=== PATIENT | male | born 1985 | race Hispanic/Latino ===

== ENCOUNTER 2019-01-14 22:21 | Observation (INO) | payer SELFPAY ==
[2019-01-14 23:02] LABS: Absolute Lymphocytes (CBC) 3.6 K/uL (0.7-4.9); Absolute Monocytes 1.2 K/uL (0.1-1.3); Basophils % 0.5 % (0-1.3); Eosinophils % 1.8 % (0-4.4); Lymphocytes % 27.7 % (15.3-44.8); MPV 8.3 fL (7.6-11.3); RBC Red Blood Cell Count 4.83 M/uL (4.33-5.43)
[2019-01-14 23:13] LABS: ALT/SGPT 61 U/L (12-78); AST/SGOT 80 U/L (15-37); Albumin 3.7 g/dL (3.4-5.0); Alkaline Phosphatase 98 U/L (45-117); BUN Blood Urea Nitrogen 14 mg/dL (7-18); Bicarbonate 29 mmol/L (21-32); Bilirubin Direct < 0.1 mg/dL (0-0.2); Bilirubin Total 0.3 mg/dL (0.2-1.0); Glucose Level 109 mg/dL (74-106); Lipase 605 U/L (73-393); Potassium 3.7 mmol/L (3.5-5.1); Protein, Total 7.4 g/dL (6.4-8.2); Sodium Level 142 mmol/L (136-145)
[2019-01-14] MEDS ORDERED: NA CHLORIDE 0.9% 1,000 ML ONE (23:35)
[2019-01-14 23:58] LABS: Urine Blood NEGATIVE (NEG); Urine Glucose NEGATIVE (NEG); Urine Protein NEGATIVE (NEG); Urine pH 5.5 (5.0-7.0)
--- NOTE | 2019-01-15 01:36 | ER ---
Nurse's Notes [facility] Name: Easton Rodrigues Age: 33 yrs Sex: Male : 1985 Arrival Date: 01/14/2019 Time: 22:24 Bed 25 Private MD: Diagnosis: Cholelithiasis;Acute pancreatitis Presentation: 01/14 22:25 Presenting complaint: EMS states: sudden onset RUQ pain. Hx of gallstone. Transition of ca1 care: patient was not received from another setting of care. Onset of symptoms was January 14, 2019. Risk Assessment: Do you want to hurt yourself or someone else? Patient reports no desire to harm self or others. Initial Sepsis Screen: Does the patient meet any 2 criteria? No. Patient's initial sepsis screen is negative. Does the patient have a suspected source of infection? Yes: Acute abdominal pain. Care prior to arrival: Medication(s) given: zofran 4 mg, Toradol 30mg IV initiated. 20 GA, in the left antecubital area. 22:25 Method Of Arrival: EMS: [facility] ca1 22:25 Acuity: ELMO 3 ca1 Triage Assessment: 22:29 General: Appears in no apparent distress. comfortable. General: Behavior is calm, ca1 cooperative, appropriate for age. Pain: Complains of pain in right upper quadrant Pain does not radiate. Pain currently is 6 out of 10 on a pain scale. Pain began 30 min ago. Historical: - Allergies: 22:29 No Known Allergies; ca1 - Home Meds: 22:29 None [Active]; ca1 - PMHx: 22:29 None; ca1 - PSHx: 22:29 None; ca1 - Immunization history:: Flu vaccine is not up to date. - Social history:: Smoking status: Patient uses tobacco products, denies chronic smoking, but will smoke occasionally, Patient uses alcohol, occasionally. Patient/guardian denies using street drugs. - Ebola Screening: : No symptoms or risks identified at this time. Screenin:32 Abuse screen: Denies threats or abuse. Denies injuries from another. Nutritional ca1 screening: No deficits noted. Tuberculosis screening: No symptoms or risk factors identified. Fall Risk None identified. Assessment: 22:32 General: Appears in no apparent distress. comfortable, Behavior is calm, cooperative, ca1 appropriate for age. Pain: Complains of pain in right upper quadrant Pain does not radiate. Pain currently is 6 out of 10 on a pain scale. Pain began 30 min ago. Is continuous. Neuro: Level of Consciousness is awake, alert, obeys commands, Oriented to person, place, time, situation. Cardiovascular: Heart tones S1 S2 present Capillary refill < 3 seconds Patient's skin is warm and dry. Respiratory: Airway is patent Respiratory effort is even, unlabored, Respiratory pattern is regular, symmetrical, Breath sounds are clear bilaterally. GI: Abdomen is round non-distended, Bowel sounds present X 4 quads. Abd is soft X 4 quads Abdomen is tender to palpation in right upper quadrant Patient currently denies nausea, vomiting. : No deficits noted. No signs and/or symptoms were reported regarding the genitourinary system. EENT: No deficits noted. No signs and/or symptoms were reported regarding the EENT system. Derm: Skin is intact, is healthy with good turgor, Skin is pink, warm \T\ dry. Musculoskeletal: Circulation, motion, and sensation intact. Capillary refill < 3 seconds. 23:35 Reassessment: Patient appears in no apparent distress at this time. Patient and/or ca1 family updated on plan of care and expected duration. Pain level reassessed. Patient is alert, oriented x 3, equal unlabored respirations, skin warm/dry/pink. 01/15 00:40 Reassessment: Patient appears in no apparent distress at this time. Patient and/or ca1 family updated on plan of care and expected duration. Pain level reassessed. Patient is alert, oriented x 3, equal unlabored respirations, skin warm/dry/pink. Vital Signs: 01/14 22:29 BP 123 / 72; Pulse 95; Resp 18; Temp 97.8; Pulse Ox 99% on R/A; Weight 117.93 kg; ca1 Height 5 ft. 10 in. (177.80 cm); Pain 6/10; 23:35 BP 122 / 74; Pulse 88; Resp 19; Pulse Ox 100% on R/A; ca1 01/15 00:40 BP 120 / 71; Pulse 91; Resp 19; Pulse Ox 99% on R/A; ca1 02:15 BP 124 / 72 LA; Pulse 81; Resp 18 S; Pulse Ox 97% on R/A; rv 01/14 22:29 Body Mass Index 37.31 (117.93 kg, 177.80 cm) ca1 ED Course: 01/14 22:24 Patient arrived in ED. ca1 22:24 Naomi Ramires FNP-C is [facility]. kb 22:24 Sebas Carr MD is Attending Physician. kb 22:27 Triage completed. ca1 22:29 Arm band placed on right wrist. ca1 22:32 Nicolle Trujillo, RN is Primary Nurse. ca1 22:32 Patient has correct armband on for positive identification. Placed in gown. Bed in low ca1 position. Call light in reach. Side rails up X 1. Pulse ox on. NIBP on. Warm blanket given. 22:40 No provider procedures requiring assistance completed. Inserted saline lock: 20 gauge ca1 in right antecubital area, using aseptic technique. Blood collected. 22:41 US Abdomen Limited In Process Unspecified. EDMS 22:59 Ultrasound completed. hr 01/15 00:00 CT Abd/Pelvis - W/Contrast In Process Unspecified. EDMS 01:35 Santiago Fierro MD is Hospitalizing Provider. kb 02:15 Patient admitted, IV remains in place. intact. rv Administered Medications: 01/14 23:25 Drug: NS 0.9% 1000 ml Route: IV; Rate: 1000 ml; Site: right antecubital; ca1 03 02:13 Follow up: IV Status: Completed infusion rv 01:54 Drug: NS 0.9% 1000 ml Route: IV; Rate: 125 ml/hr; Site: right antecubital; rv 02:13 Follow up: IV Status: Infusion continued upon admission rv 02:13 Drug: cefOXitin 2 grams Route: IVPB; Infused Over: 30 mins; Site: right antecubital; rv Outcome: 01:35 Decision to Hospitalize by Provider. kb 02:15 Admitted to Med/surg accompanied by nurse, via wheelchair, room 224, with chart, Report rv called to NAE POLK 02:15 Condition: good 02:15 Instructed on the need for admit, Demonstrated understanding of instructions. 02:16 Patient left the ED. rv Signatures: Dispatcher [employer] EDMS Naomi Ramires FNP-C FNP-Jimena Tran Oswaldo Blas RN RN rv Nicolle Trujillo RN RN ca1
--- NOTE | 2019-01-15 01:37 | EDPHYS ---
Physician Documentation [facility] Name: Easton Rodrigues Age: 33 yrs Sex: Male : 1985 Arrival Date: 01/14/2019 Time: 22:24 Bed 25 Private MD: ED Physician Sebas Carr HPI: 01/14 23:54 This 33 yrs old Male presents to ER via EMS with complaints of Abdominal Pain. kb 23:54 The patient presents with abdominal pain in the right upper quadrant. Onset: The kb symptoms/episode began/occurred 1 hour(s) ago. The symptoms do not radiate. Associated signs and symptoms: none. The symptoms are described as constant. Modifying factors: The symptoms are alleviated by nothing, the symptoms are aggravated by pressure. Severity of pain: At its worst the pain was moderate in the emergency department the pain is unchanged. The patient has experienced a previous episode. The patient has not recently seen a physician. Historical: - Allergies: 22:29 No Known Allergies; ca1 - Home Meds: 22:29 None [Active]; ca1 - PMHx: 22:29 None; ca1 - PSHx: 22:29 None; ca1 - Immunization history:: Flu vaccine is not up to date. - Social history:: Smoking status: Patient uses tobacco products, denies chronic smoking, but will smoke occasionally, Patient uses alcohol, occasionally. Patient/guardian denies using street drugs. - Ebola Screening: : No symptoms or risks identified at this time. ROS: 23:54 Constitutional: Negative for fever, chills, and weight loss, Cardiovascular: Negative kb for chest pain, palpitations, and edema, Respiratory: Negative for shortness of breath, cough, wheezing, and pleuritic chest pain, Back: Negative for injury and pain, : Negative for injury, bleeding, discharge, and swelling, MS/Extremity: Negative for injury and deformity, Skin: Negative for injury, rash, and discoloration, Neuro: Negative for headache, weakness, numbness, tingling, and seizure. 23:54 Abdomen/GI: Positive for abdominal pain, Negative for nausea, vomiting, and diarrhea, constipation, abdominal cramps, abdominal distension, anorexia. Exam: 23:53 Constitutional: This is a well developed, well nourished patient who is awake, alert, kb and in no acute distress. Head/Face: Normocephalic, atraumatic. Chest/axilla: Normal chest wall appearance and motion. Nontender with no deformity. No lesions are appreciated. Cardiovascular: Regular rate and rhythm with a normal S1 and S2. No gallops, murmurs, or rubs. Normal PMI, no JVD. No pulse deficits. Respiratory: Lungs have equal breath sounds bilaterally, clear to auscultation and percussion. No rales, rhonchi or wheezes noted. No increased work of breathing, no retractions or nasal flaring. Back: No spinal tenderness. No costovertebral tenderness. Full range of motion. Skin: Warm, dry with normal turgor. Normal color with no rashes, no lesions, and no evidence of cellulitis. MS/ Extremity: Pulses equal, no cyanosis. Neurovascular intact. Full, normal range of motion. Neuro: Awake and alert, GCS 15, oriented to person, place, time, and situation. Cranial nerves II-XII grossly intact. Motor strength 5/5 in all extremities. Sensory grossly intact. Cerebellar exam normal. Normal gait. 23:53 Abdomen/GI: Inspection: obese Bowel sounds: normal, in all quadrants, Palpation: soft, in all quadrants, moderate abdominal tenderness, in the right upper quadrant. Vital Signs: 22:29 BP 123 / 72; Pulse 95; Resp 18; Temp 97.8; Pulse Ox 99% on R/A; Weight 117.93 kg; ca1 Height 5 ft. 10 in. (177.80 cm); Pain 6/10; 23:35 BP 122 / 74; Pulse 88; Resp 19; Pulse Ox 100% on R/A; ca1 01/15 00:40 BP 120 / 71; Pulse 91; Resp 19; Pulse Ox 99% on R/A; ca1 02:15 BP 124 / 72 LA; Pulse 81; Resp 18 S; Pulse Ox 97% on R/A; rv 01/14 22:29 Body Mass Index 37.31 (117.93 kg, 177.80 cm) ca1 MDM: 01/14 22:24 Patient medically screened. kb 23:53 Data reviewed: vital signs, nurses notes. Data interpreted: Pulse oximetry: on room air kb is 99 %. Interpretation: normal. 01/15 01:34 Counseling: I had a detailed discussion with the patient and/or guardian regarding: the kb historical points, exam findings, and any diagnostic results supporting the discharge/admit diagnosis, lab results, radiology results, the need for further work-up and treatment in the hospital. Physician consultation: Santiago Fierro MD was contacted at 01:34, regarding admission, to the medical/surgical unit. patient's condition, and will see patient in inpatient room, later today, called by Dr Carr. 01/14 22:25 Order name: Basic Metabolic Panel; Complete Time: 23:17 kb 01/14 22:25 Order name: CBC with Diff; Complete Time: 23:12 kb 01/14 22:25 Order name: Hepatic Function; Complete Time: 23:17 kb 01/14 22:25 Order name: Lipase; Complete Time: 23:17 kb 01/14 22:25 Order name: US Abdomen Limited kb 01/14 23:46 Order name: Urine Dipstick--Ancillary (enter results); Complete Time: 00:00 mw2 01/14 22:25 Order name: IV Saline Lock; Complete Time: 22:52 kb 01/14 22:25 Order name: Labs collected and sent; Complete Time: 22:52 kb 01/14 23:18 Order name: CT Abd/Pelvis - W/Contrast kb Administered Medications: 01/14 23:25 Drug: NS 0.9% 1000 ml Route: IV; Rate: 1000 ml; Site: right antecubital; ca1 01/15 02:13 Follow up: IV Status: Completed infusion rv 01:54 Drug: NS 0.9% 1000 ml Route: IV; Rate: 125 ml/hr; Site: right antecubital; rv 02:13 Follow up: IV Status: Infusion continued upon admission rv 02:13 Drug: cefOXitin 2 grams Route: IVPB; Infused Over: 30 mins; Site: right antecubital; rv Disposition: 01/15/19 01:35 Hospitalization ordered by Santiago Fierro for Observation. Preliminary diagnosis are Cholelithiasis, Acute pancreatitis. - Bed requested for Telemetry/MedSurg (observation). - Status is Observation. rv - Condition is Stable. - Problem is new. - Symptoms are unchanged. UTI on Admission? No Addendum: 01/17/2019 19:38 Co-signature as Attending Physician, Sebas Carr MD. g s Signatures: Dispatcher [employer] EDNaomi Hair FNP-C RESIDUE FURNACE OPERATOR-Ckb Taya Cruz RN RN fc Sebas Carr MD MD gs Vicente, Ronaldo, RN RN rv Nicolle Trujillo RN RN ca1 Corrections: (The following items were deleted from the chart) 01/15 01:59 01:35 Hospitalization Ordered by Santiago Fierro MD for Observation. Preliminary fc diagnosis is Cholelithiasis; Acute pancreatitis. Bed requested for Telemetry/MedSurg (observation). Status is Observation. Condition is Stable. Problem is new. Symptoms are unchanged. UTI on Admission? No. kb 02:16 01:59 01/15/2019 01:35 Hospitalization Ordered by Santiago Fierro MD for Observation. rv Preliminary diagnosis is Cholelithiasis; Acute pancreatitis. Bed requested for Telemetry/MedSurg (observation). Status is Observation. Condition is Stable. Problem is new. Symptoms are unchanged. UTI on Admission? No. fc
[2019-01-15] MEDS ORDERED: CEFOXITIN/SWI 1gm 1 GM/10 ML SYR ONE ×2 (01:53→02:01)
[2019-01-15] MEDS ORDERED: NA CHLORIDE 0.9% 1,000 ML ONE (02:02)
[2019-01-15] MEDS ORDERED: NA CHLORIDE 0.9% 100 ML IV ONE (02:08)
[2019-01-15] MEDS ORDERED: MORPHINE 4 MG/ML SYR IV PRN ×2 (02:27→14:37)
[2019-01-15] MEDS ORDERED: ACETAMINOPHEN 500 MG TAB PO PRN (02:27)
[2019-01-15] MEDS: NA CHLORIDE 0.9% 1,000 ML IV SCH ×3 (02:27→14:39)
[2019-01-15] MEDS ORDERED: ONDANSETRON 4 MG/2 ML VIAL IV PRN (02:27)
[2019-01-15] MEDS ORDERED: INFLUENZA VACCINE (for 3y+) 0.5 ML DOSE IMVAC ONE (06:00)
[2019-01-15] MEDS ORDERED: CEFOXITIN SODIUM 1 GM/VIAL IVPB SCH (06:00)
--- NOTE | 2019-01-15 07:04 | RAD REPORT ---
EXAM DESCRIPTION: US - Abdomen Exam Limited - 01/14/2019 10:42 pm CLINICAL HISTORY: Abdominal pain, right upper quadrant pain Preliminary findings were provided at the time of the study. COMPARISON: None. FINDINGS: Gallbladder is normal size. Gallbladder is packed with multiple gallstones. Number gallsto lora limits ability to accurately assess size. Gallbladder wall is upper normal. No pericholecystic fl uid. No intrahepatic biliary dilatation seen. Common bile duct is 3 mm, normal range. Biliary tree assessm ent was limited. IMPRESSION: Normal size gallbladder packed with multiple gallstones. Gallbladder wall is upper jabier l in echogenic. No pericholecystic fluid. Correlation is needed with any acute cholecystitis lab or e xam findings. Biliary tree is grossly normal but considered limited in assessment. MRCP imaging could be performed if the patient has symptoms or lab findings suggesting duct stones.
[2019-01-15] MEDS ORDERED: Ringers Lactate 1,000 ML IV ONE ×2 (11:19→12:59)
[2019-01-15] MEDS ORDERED: BUPIVACAINE 0.5% PF 10 ML VIAL ONE (11:35)
[2019-01-15] MEDS ORDERED: PROPOFOL 200 MG/20 ML VIAL IV ONE (11:39)
[2019-01-15] MEDS ORDERED: MIDAZOLAM HCL 2 MG/2 ML INJ ONE (11:40)
[2019-01-15] MEDS ORDERED: FENTANYL CITR 250 MCG/5 ML ONE (11:40)
[2019-01-15] MEDS ORDERED: GLYCOPYRROLATE 0.2 MG/ML SYR ONE (11:40)
[2019-01-15] MEDS ORDERED: LIDOCAINE 2% MPF 5 ML VIAL ONE ×2 (11:40→13:33)
--- NOTE | 2019-01-15 12:03 | P.HP ---
Date of Service: 01/15/19 PC: This 33-year-old male presents emergency room with severe right upper quadrant abdominal pain for diagnosis and treatment. HPC: Patient apparently had been at home. Began to experience a right upper quadrant abdominal pain. Went to the bathroom to see if the bowel local relieve his discomfort. Afterwards he passed out and was brought to the hospital. PMH: Negative PSHx: Negative SOC: No known allergies SYS REVIEW: No cough, wheeze, shortness of breath. No chest pain or palpitations. Denies any urinary complaints O/E awake alert vital signs are stable HEENT: Not jaundiced Chest: Chest movement equal bilaterally ABD: Tender in the right upper quadrant LOCO: Intact DATA: Has documented gallstones, lipase mildly elevated IMPRESSION: Cholecystitis with cholelithiasis possible choledocholithiasis PLAN: I will take him to the operating room for laparoscopic cholecystectomy with intraoperative cholangiogram. The risks of this procedure have been discussed. The possibility of bleeding, infection, injury to bile ducts blood vessels intestines was described. The possible need for an open and/or further surgeries and procedures including ERCP were described. He and his understands, and want to proceed.
[2019-01-15] MEDS: CEFOXITIN/SWI 1gm 1 GM/10 ML SYR IV SCH ×2 (12:05→17:56)
[2019-01-15] MEDS ORDERED: ONDANSETRON 4 MG/2 ML VIAL ONE (13:19)
[2019-01-15] MEDS ORDERED: ROCURONIUM 50 MG/5 ML VIAL IV ONE ×2 (13:19→13:24)
[2019-01-15] MEDS ORDERED: NEOSTIGMINE 1 MG/ML -10 ML VIAL ONE (13:19)
[2019-01-15] MEDS ORDERED: FENTANYL CITR 100 MCG/2 ML ONE (13:20)
[2019-01-15] MEDS: HYDROMORPHONE HCL 2 MG/ML inj ONE ×4 (13:45→14:16)
--- NOTE | 2019-01-15 14:22 | P.OP ---
Preoperative diagnosis: Cholecystitis with cholelithiasis, possible choledocholithiasis Postoperative diagnosis: The same Primary procedure: Laparoscopic cholecystectomy Secondary procedure: Cholangiogram Anesthesia: General Estimated blood loss: And 10 cc Specimen: 1 gallbladder and contents Operative Technique: The patient was brought to the operating room placed supine on the table. After the induction of adequate general endotracheal anesthesia, the area of the abdomen is prepped with a DuraPrep solution, and draped in the usual aseptic manner. A subumbilical incision was made. This brought down through the skin and subcutaneous tissue. The Visiport was used to enter the peritoneal cavity and created pneumoperitoneum to approximately 12 mm of mercury. Under direct vision a 5 mm trocar was placed in the upper midline, and 2 other 5 mm trocars on the right lateral side. The patient's head was then elevated and rolled towards the pebble mill operator's side. We could see a distended and acutely inflamed gallbladder.. A grasper was placed on the fundus of the gallbladder. Another 1 was placed down by Stephon's pouch. Applying lateral traction we were able to dissect and expose the cystic duct and artery. The artery was dealt with 1st. It was clipped and divided in the usual manner. A clip was then placed between the gallbladder and the cystic duct. An opening was made into the cystic duct. We attempted then to pass the cholangiocath into the cystic duct. The cholangiogram demonstrated good flow contrast into the duodenum, there were no filling defects noted. Clips were now placed on the distal portion of the cystic duct. The cystic duct was then divided. The gallbladder was now dissected free from the liver bed, placed into an Endo-Catch, and brought out through the umbilical trocar site. Because of the size of the gallbladder was necessary to open the facile incision to allow this specimen to be removed from the peritoneal cavity. The gallbladder fossa was inspected to ensure adequate hemostasis. It was irrigated with a saline solution and the irrigant aspirated from the peritoneal cavity. 0.25% Marcaine was aerosolized into the right upper quadrant and the gallbladder fossa. The umbilical trocar site was now approximated with an Endo Close and an absorbable sutures. The pneumoperitoneum was then collapsed, the suture tied, and mditriy applied to the skin. A further 0.25% Marcaine was injected around are incision sites. At the end of the procedure the patient was in a stable condition when sent to the recovery room. Needle sponge instrument count were correct. 1 specimen was sent for histopathology. Complications: None Transferred to: Recovery Room Condition: Good
[2019-01-15] MEDS ORDERED: HYDROCODONE/APAP 7.5/325 MG TAB PO PRN (14:37)
--- NOTE | 2019-01-15 15:30 | RAD REPORT ---
EXAM DESCRIPTION: RADCholangiogram Oper-Xray Or01/15/2019 3:21 pm CLINICAL HISTORY: Abdominal pain FINDINGS: The examination was performed by Dr. Fierro. The cystic duct was cannulated and contrast administered. Contrast flowed into the duodenum. A filling defect within the bile duct is not seen. Two fluoroscopic spot images. Fluoroscopy time 0.2 minutes
--- NOTE | 2019-01-16 12:00 | RAD REPORT ---
EXAM DESCRIPTION: CT - Abdomen Pelvis W Contrast - 01/15/2019 12:20 am CLINICAL HISTORY: The patient is 50 years old and is Male; ABD PAIN TECHNIQUE: Axial computed tomography images of the abdomen and pelvis with intravenous contrast. S agittal and coronal reformatted images were created and reviewed. This CT exam was performed using one or more of the following dose reduction techniques: automated exposure control, adjustment of t he mA and/or kV according to patient size, and/or use of iterative reconstruction technique. COMPARISON: No relevant prior studies available. FINDINGS: Lung bases: Unremarkable. No mass. No consolidation. ABDOMEN: Liver: There is a diffuse decrease in hepatic parenchymal density, consistent with fatty infiltr ation. Gallbladder and bile ducts: No calcified stones. No ductal dilation. Pancreas: No ductal dilation. No mass. Spleen: Unremarkable. Adrenals: Unremarkable. No mass. Kidneys and ureters: Unremarkable. No solid mass. No hydronephrosis. Stomach and bowel: The stomach is decompressed. The proximal small bowel is normal in caliber. S everal small bowel loops within the right abdomen are dilated and fluid-filled with a transition poin t at the level of anastomosis. The remainder of the small bowel is normal in caliber. The colon is fi lled with liquid stool. PELVIS: Appendix: No findings to suggest acute appendicitis. Bladder: Unremarkable. No mass. Reproductive: Unremarkable as visualized. ABDOMEN and PELVIS: Intraperitoneal space: Unremarkable. No free air. No significant fluid collection. Bones/joints: No acute fracture. Soft tissues: Midline abdominal incision is present. Vasculature: Unremarkable. No abdominal aortic aneurysm. Lymph nodes: Unremarkable. No enlarged lymph nodes. IMPRESSION: Findings suggestive of a small bowel ileus/developing obstruction with transition near t he anastomosis in the right abdomen. Electronically signed by: Gala Blank MD 01/16/2019 3:32 AM CDT Due to temporary technical issues with the PACS/Fluency reporting system, reports are being signed by the in house radiologist as a courtesy to ensure prompt reporting. The interpreting radiologist is f ully responsible for the content of the report.
== END 2019-01-15 19:58 | disposition home or self-care (01) ==
LOC: ER 22:21 → ERHOLD 01-15 01:38 → 2ND 01-15 02:10
PROVIDERS: ADMIT Surgery; ATTEND Surgery
PROC: BF00YZZ Plain Radiography of Bile Ducts using Other Contrast (ICD-10-PCS; 2019-01-15)
PROC: 0FT44ZZ Resection of Gallbladder, Percutaneous Endoscopic Approach (ICD-10-PCS; principal; 2019-01-15 12:00)
DX: K80.10 Calculus of gallbladder with chronic cholecystitis without obstruction (principal); Z23 Encounter for immunization
CPT/HCPCS: 36415; 74177; 74300; 76705; 80048; 80076; 81003; 83690; 85025; 88304; 96361; 96374; 99285; G0008; G0378; J0694; J1170; J2250; J2405; J2704; J2710; J3010; J7030; Q2035; Q9967